=== PATIENT | female | born 1985 | race African-American/Black ===

== ENCOUNTER 2021-03-22 13:05 | Emergency (ER) | payer OTHER ==
[~2021-03-22] VITALS: Ht 160 cm; Wt 95.3 kg
[2021-03-22 13:10] VITALS: BP 128/73; TEMP 98.1
== END 2021-03-22 13:15 | disposition home or self-care (01) ==
LOC: ED 13:05
DX: Z53.21 Procedure and treatment not carried out due to patient leaving prior to being seen by health care provider (principal)
CPT/HCPCS: 99281

== ENCOUNTER 2022-04-12 23:39 | Emergency (ER) | payer OTHER ==
[~2022-04-12] VITALS: Ht 160 cm; Wt 113.4 kg
[2022-04-13 00:51] LABS: PLATELET COUNT 371 K/uL (152-353)
[2022-04-13 00:55] LABS: POTASSIUM 3.1 mmol/L (3.6-5.2)
[2022-04-13 02:31] LABS: PARTIAL THROMBOPLASTIN TIME 27.7 SECONDS (24.5-33.6)
[2022-04-13 04:05] VITALS: BP 100/77; TEMP 97.9
== END 2022-04-13 04:05 | disposition short-term general hospital (02) ==
LOC: ED 23:39
PROVIDERS: Emergency Medicine
DX: I26.99 Other pulmonary embolism without acute cor pulmonale (principal); Z86.711 Personal history of pulmonary embolism; J18.9 Pneumonia, unspecified organism; I50.9 Heart failure, unspecified; Z79.01 Long term (current) use of anticoagulants; F17.210 Nicotine dependence, cigarettes, uncomplicated; Z11.52 Encounter for screening for COVID-19
CPT/HCPCS: 36415; 80053; 80307; 81025; 83880; 84484; 85027; 85379; 85610; 85730; 87635; 93005; 96365; 96366; 96375; 99285; J0696; J1020; J1644; J1940; J2920; Q9963; U0003

== ENCOUNTER 2022-08-18 17:13 | Emergency (ER) | payer OTHER ==
[~2022-08-18] VITALS: Ht 160 cm; Wt 91.2 kg
[2022-08-18 17:13] VITALS: TEMP 97
[2022-08-18 17:47] LABS: PLATELET COUNT 211 K/uL (152-353)
[2022-08-18 18:00] LABS: PARTIAL THROMBOPLASTIN TIME 33.6 SECONDS (23.9-36.7); POTASSIUM 2.8 mmol/L (3.6-5.2)
[2022-08-18 20:30] VITALS: BP 115/71
== END 2022-08-18 20:31 | disposition home or self-care (01) ==
LOC: ED 17:13
PROVIDERS: Family Medicine
DX: R07.89 Other chest pain (principal); S20.219A Contusion of unspecified front wall of thorax, initial encounter
CPT/HCPCS: 36415; 80053; 80307; 81000; 81025; 82550; 84484; 85027; 85379; 85610; 85730; 87086; 87088; 93005; 96372; 99283; J1885; J2405